=== PATIENT | female | born 1955 | race Caucasian/White ===

== ENCOUNTER 2018-06-25 08:00 | Outpatient (RCR) | payer SELFPAY ==
--- NOTE | 2018-12-09 14:53 | HP.PT.NRP ---
HP - Discharge Summary (1) - Patient Information MARQUITA LEWIS was seen in my office for initial evaluation on 06/16/18. The following Plan of Care was established for this patient: Initial Frequency: 1x/Week Initial Duration: 4 Weeks - Anticipated Interventions Manual Therapy Techniques to Include: Functional dry needling This patient was last seen in our office . Pertinent comments regarding their Physical therapy will appear below: Discharge- self pay dry needle patient. At this point I will be discontinuing this patient from physical therapy. I would be happy to see this patient again in the future if found appropriate by the physician. Thank you! DAVID GaliciaT
== END 2018-06-25 19:00 | disposition home or self-care (01) ==
LOC: PT 08:00
PROVIDERS: Family Provider Family Medicine; PCP Family Medicine
DX: R69 Illness, unspecified (principal)

== ENCOUNTER 2018-07-31 07:45 | Emergency (ER) | payer MEDICARE, OTHER, SELFPAY ==
[2018-07-31 07:46] VITALS: BP 136/68; PULSE 65; RESP 18; TEMP 36.6; O2SAT 100; BMI 27.3
--- NOTE | 2018-07-31 08:05 | ED.VISSUMM ---
- ER Visit Summary Date of Service: 07/31/18 Chief Complaint: Left forehead laceration History of Present Illness: The patient is a 63 F history of hypothyroidism and CLL patient states she was gathering her cat up-to-date is taken to the taper machine and when she stooped down to pick it up she hit her left forehead on a glass door knob lacerating her forehead. No LOC. No other injuries. She is not on blood thinners. She has no idea when her last tetanus shot was so it will be updated. Physical Examination: Older female. No acute distress. Vital signs are stable and afebrile. HEENT exam patient has a 2-1/2-3 cm diagonal laceration to the left lateral forehead. No active bleeding. Small swelling. Pupils round reactive light. No other signs of trauma to her face or scalp. Neck nontender. Lungs clear to auscultation bilaterally. Heart regular rate and rhythm no murmur. Abdomen soft. Moving all 4 extremities. Neurologically she is awake and alert with no focal motor deficits. Acting appropriately. Test Results: None Emergency Department Course and Treatment: Tetanus will be updated. Procedure note: Left forehead laceration with ER repair of 3 cm. Local anesthetic with lidocaine. Cleaned with Shur-Clens then washed with saline and explored. Closed using 2 interrupted 6-0 Ethilon sutures. Proper hemostasis and wound closures obtained. Treatment Plan: Wound care. Suture removal in 5 days. Disposition: Discharge Impression: Left forehead 3 cm laceration with ER repair Tetanus updated This note was generated with [employer] dictation software. It may contain incorrect words, spelling, and punctuation that were not noted in review of the chart prior to signing ED Disposition - Plan for ED Patient: Disposition: Home or Assisted Living Instructions: ED Laceration Facial Sutr Tape Referrals: Gene Gillette MD [Primary Care Provider] - 5 Days for suture removal Additional Instructions: Ice to the area. Tylenol for pain. Suture removal in 5 days.
--- NOTE | 2018-07-31 08:09 | ED.DCSUM_ITS ---
- ER Visit Summary Date of Service: 07/31/18 Chief Complaint: Left forehead laceration History of Present Illness: The patient is a 63 F history of hypothyroidism and CLL patient states she was gathering her cat up-to-date is taken to the flatwork folder and when she stooped down to pick it up she hit her left forehead on a glass door knob lacerating her forehead. No LOC. No other injuries. She is not on blood thinners. She has no idea when her last tetanus shot was so it will be updated. Physical Examination: Older female. No acute distress. Vital signs are stable and afebrile. HEENT exam patient has a 2-1/2-3 cm diagonal laceration to the left lateral forehead. No active bleeding. Small swelling. Pupils round reactive light. No other signs of trauma to her face or scalp. Neck nontender. Lungs clear to auscultation bilaterally. Heart regular rate and rhythm no m urmur. Abdomen soft. Moving all 4 extremities. Neurologically she is awake and alert with no focal motor deficits. Acting appropriately. Test Results: None Emergency Department Course and Treatment: Tetanus will be updated. Procedure note: Left forehead laceration with ER repair of 3 cm. Local anesthetic with lidocaine. Cleaned with Shur-Clens then washed with saline and explored. Closed using 2 interrupted 6-0 Ethilon sutures. Proper hemostasis and wound closures obtained. Treatment Plan: Wound care. Suture removal in 5 days. Disposition: Discharge Impression: Left forehead 3 cm laceration with ER repair Tetanus updated This note was generated with [employer] dictation software. It may contain incorrect words, spelling, and punctuation that were not noted in review of the chart prior to signing ED Disposition - Plan for ED Patient: Disposition: Home or Assisted Living Instructions: ED Laceration Facial Sutr Tape Referrals: Gene Gillette MD [Primary Care Provider] - 5 Days for suture removal Additional Instructions: Ice to the area. Tylenol for pain. Suture removal in 5 days.
[2018-07-31] MEDS: Diphth,Pertuss(Acell),Tet Vac 0.5 ML Vial IM (08:18)
== END 2018-07-31 08:38 | disposition home or self-care (01) ==
PROVIDERS: Emergency Provider Emergency Medicine; Family Provider Family Medicine; PCP Family Medicine
DX: S01.81XA Laceration without foreign body of other part of head, initial encounter (principal); W22.8XXA Striking against or struck by other objects, initial encounter; Y93.89 Activity, other specified; Y92.9 Unspecified place or not applicable; E03.9 Hypothyroidism, unspecified
CPT/HCPCS: 12013; 90471; 90715; 99283

== ENCOUNTER → 2024-08-04 | Outpatient (CLI) | payer MEDICARE, OTHER, SELFPAY ==
--- NOTE | 2024-08-04 07:45 | CT_ITS ---
PROCEDURE: SOFT TISSUE NECK WITH CONTRAST REASON FOR EXAM: Six-month history of right parotid calculus. 75 cc of Isovue-300. TECHNIQUE: CT of the soft tissues of the neck from the orbits to the upper mediastinum with intravenous contrast. CONTRAST: Coronal and sagittal reconstruction was obtained as well. COMPARISON: None. FINDINGS: Airway: Midline and patent. Pharyngeal mucosal space: Unremarkable. Hypopharynx and larynx: Unremarkable. Parapharyngeal and retropharyngeal spaces: Unremarkable. Auger Press Operator and buccal spaces: Unremarkable. Salivary glands: The right parotid gland is atrophied and fatty replaced. No calculus is seen. Lymph nodes: Mild reactive enlargement of multiple cervical lymph nodes. Thyroid: There is a 1.1 cm hypodense nodule in the midportion of the left lobe of the thyroid. Vasculature: Carotid arteries and internal jugular veins are unremarkable. Orbits: Unremarkable at visualized levels. Paranasal sinuses and mastoids: Grossly clear at visualized levels. Lung apices: Clear. Upper mediastinum: Visualized mediastinum is unremarkable. Bones: Multilevel degenerative changes of the spine. Atrophy of the right parotid gland. No calculus is seen in the right parotid gland. CT/Soft Tissue Neck WITH Contrast IMPRESSION: One or more dose reduction techniques were used (e.g., Automated exposure contr ol, adjustment of the mA and/or kV according to patient size, use of iterative reconstruction technique). Reading Location: [place] [id number]
== END | disposition home or self-care (01) ==
LOC: CT 07:33
PROVIDERS: PCP Nurse Practitioner Family; Referring Provider Otolaryngology Otolaryngology/Facial Plastic Surgery; Visit Provider Otolaryngology Otolaryngology/Facial Plastic Surgery
DX: D11.0 Benign neoplasm of parotid gland (principal)
CPT/HCPCS: 70491; Q9967